=== PATIENT | female | born 1995 | race Caucasian/White ===

== ENCOUNTER 2025-04-03 13:12 | Outpatient (AMB) | payer OTHER, SELFPAY ==
--- OUTSIDE RECORDS SUMMARY | 2025-01-29 09:00 | XMS_ITS | Encounter Summary ---
Author Organization [facility] Address [address] [place] [phone] Phone Care Team Providers [employer] Pilot Name Role Phone Pcp, Unknown Primary Care Provider Unavailabl e Encounter Details Date Type Department Care Team (Late st Contact Info) Description 01/29/2025 10:00 AM EDT Telemedicine [facility] [place]ol[place] General LW [address] [place] [address] Darnell Luna MD, MPH [address] [place] [address] [email or web address]. [facility] Chronic rhinitis (Primary Dx); Laryngopharyngeal reflux; Post-nasal drip; Recurrent tonsillitis Social History Tobacco Use Types Packs/Day Years Used Date Smoking Tobacco: Never Smokeless Tobacco: Never Alcohol Use Standard Drinks/Week Comments Never 0 (1 standard drink = 0.6 oz pur e alcohol) Education Answer Date Recorded Are you interested in more education? Not on ji e 10/07/2024 Are you concerned about learning? Not on file 10/07/2024 No 10/07/2024 No 10/07/2024 Digital Access Answer Date Recorded No 10/07/2024 No 10/07/2024 Reliable internet access at home? Not on file 10/07/2024 Device with a working camera? Not on file Comments Unknown Sex and Gender Information Value Date Recorded Sex Assigned at Not on file Legal Sex Female 10:07 AM EDT Gender Identity Not on file Sexual Orientation Not on file documented as of this encounter Progress Notes * Darnell Luna MD, MPH - 01/29/2025 10:00 AM EDT Images from the original note were not included. [facility] OT[facility] PATIENT INFORMATION Name: Jazmine Vaz [id number] ([facility]) Date of : 1995 Date of service: 01/29/2025 REFERRING PROVIDER Darnell Luna MD, MPH CHIEF COMPLAINT Recurrent tonsillitis, tonsil stones, globus/throat clearing HISTORY OF PRESENT ILLNESS I had the pleasure of seeing Jazmine Vaz, who as you know is a 29 y.o. female who presents forevaluation of her nose, tonsils, and throat. Her full history as below, that she has had on average2-3 episodes of bacterial tonsillitis typified by tonsillar hypertrophy/erythema/exudate over the past 3 years, but has had a lifetime of recurrent tonsillitis. She also has a significant tonsil stone burden. In this context, she also notes sense of postnasal drainage, globus, and throat clearing. --- History of Present Illness Jazmine aVz is a 28 year old female who presents with chronic throat issues. She has a long-standing history of recurrent throat infections, particularly strep throat, occurring once or twice annually since childhood. This year, she experienced two episodes, one in August and another in September. She describes a sensation of something stuck in her throat and frequent tonsil stones. Previous medical advice attributed her symptoms to allergies. She experiences persistent throat clearing and a sensation of a lump in her throat, which worsens after eating. She denies regular heartburn but has had occasional episodes. Her tonsils often become inflamed with white spots and are painful, occurring at least two to three times per year. She sometimes experiences difficulty swallowing and suspects she may snore. No history of easy bleeding or bruising. She notes a postnasal drip that worsens in the spring but persists year-round. Throat clearing is particularly bothersome, as it feels like she cannot dislodge the sensation of mucus. She has a history of sinus infections, primarily during childhood, and was recently advised to use Zyrtec and Flonase. Socially, she has a gxt-smqm-xco son who attends daycare. Interval History (01/29/2025): She presents today in follow-up. Unfortunately, while the first month of dietary changes and reflux Gourmet, along with saline spray and azelastine were mildly effective in improving her baseline nasal obstruction, postnasal drip, unfortunately she likely contracted Palma and has been persistently obstructed nasally with more severe postnasal drip and throat clearing. PAST MEDICAL HISTORY There is no problem list on file for this patient. MEDICATIONS Current Outpatient Medications Ordered in [facility] Medication Sig azelastine (ASTELIN) 137 mcg (0.1 %) nasal spray 2 sprays by Nasal route 2 (two) times a day. Use in each nostril as directed; may cause drowsiness, if so just use at night azelastine HCl (AZELASTINE, BULK,) 100 % Powd 1 mg by sinus irrigation route 2 (two) times a day. Compound azelastine 1mg capsule in sinus rinse twice daily mometasone furoate, bulk, 100 % Powd Compound mometasone 1mg capsule in sinus rinse twice daily ALLERGIES No Known Allergies SOCIAL HISTORY Social History Tobacco Use Smoking status: Never Smokeless tobacco: Never Substance Use Topics Alcohol use: Never PRIOR PROCEDURE DIAGNOSTIC FLEXIBLE FIBEROPTIC LARYNGOSCOPY Indication: Globus / Odynophagia / Dysphonia / Persistent Throat clearing in an adult, r/o malignancy In the context of the patient's clinical presentation and the need to visualize the regions in close proximity, the decision was made to proceed with an endoscopic exam. A timeout was performed. Accordingly, after adequate topicalization with lidocaine 2% / oxymetazoline 0.025%, the fiberoptic scope was passed to visualize the regions of concern. The patient tolerated the procedure well. Findingsare as follows: Right nasal cavity: Turbinate mucosa pink, moist ; No purulence or polyps Left nasal cavity: Turbinate mucosa pink, moist ; No purulence or polyps Nasopharynx: Eustachian tube orifices patent bilaterally ; Minimal residual adenoid tissue ; No lesions or masses, Fossa of Rossenmueller clear bilaterally, moderate thin post- nasal drip with associated cobblestoning along the oropharyngeal wall Oropharynx: Symmetric and normal soft palatal elevation ; No masses or fullness in base of tongue or vallecula Hypopharynx: No masses or lesions in piriform sinuses or post-cricoid area; mild erythema and moderate edema of the post-cricoid region; No pooling of secretions Larynx: Epiglottis crisp ; Arytenoid complex with mild edema and mild erythema ; False vocal cords without obvious lesion ; True vocal folds mobile with full adduction / abduction and without obviouslesion: no cysts, polyps, nodules, or leukoplakia identified No exophytic or ulcerative lesions throughout the upper aerodigestive tract RESULTS No results found. ASSESSMENT AND PLAN Chronic rhinitis with postnasal drip, laryngopharyngeal reflux, tonsil stones Unfortunately, she is contracted a URI that has now lasted for more than a month. She notes that this is typical. At this time, we discussed a more aggressive nasal hygiene plan. Specifically, we discussed the rationale, physiology, and pathophysiology with regard to chronic rhinitis and chronic rhi nosinusitis. We discussed the rationale between combining mometasone and azelastine compounded in irrigations, which I recommend she use once daily, along with the use of saline spray and azelastine during the other time of day when she is not doing an irrigation. We discussed that consistent use can be helpful over time for resolving these persistent URI symptoms or preventing progression of a URI to bacterial infection. She will follow-up in 8 weeks once again. If there is no improvement whatsoever, we will need to discuss a CT scan at that time. Initial Plan: Recurrent bacterial tonsillitis, tonsil stones Laryngopharyngeal reflux, chronic rhinitis with postnasal drip We had an excellent conversation. We began by discussing that I think postnasal drainage and refluxare playing a role in her globus and throat clearing. For her rhinitis and postnasal drip, I have recommended saline spray with xylitol twice daily, followed by azelastine nasal spray. The risk of drowsiness with azelastine was discussed. She also has evidence of mild laryngopharyngeal reflux. In addition to significant dietary changes which we discussed in detail and for which a list was provided, I have recommended alginate therapy after every dinner. We did discuss he can take time for one notices improvement especially globus and throat clearing. With regard to her tonsils, we discussed we could consider tonsillectomy based on the number of infections and especially the considerable tonsil stone production which hinders her quality of life. That said, we did have a complete discussionwith regard to the risk of tonsillectomy and the recovery, including severe pain, along with the risk of postoperative hemorrhage. I am hopeful that with the plan above, we may be able to reduce her frequent tonsillitis given that in some patients, postnasal drainage and occasionally reflux can contribute. If she develops another significant case of tonsillitis in the next few months however, we may need to reconsider this. I will follow-up with her in 8 weeks virtually to assess for improvement. Darnell Luna MD, MPH Otolaryngology, Head & Neck Surgery [address] [address] (p) [phone], (f) [phone] Virtual Visit Attestation Modality: video Provider Location, state disclosed to patient: home / other Patient Location: home Patient State or Country: [place] documented in this encounter Plan of Treatment Upcoming Encounters Date Type Department Care Team (Late st Contact Info) Description 04/02/2025 Procedure Pass [facility] [place] Imaging [place] CT [address] [address] 05/07/2025 10:45 AM EST Appointment [facility] - [place] [address] [address] Darnell Luna MD, MPH [address] [place] [phone] [email or web address] 05/25/2025 12:00 PM EST Office Visit [facility] [place] Otolaryngology General [address] [address] Darnell Luna MD, MPH [address] [place] [phone] [email or web address] 06/11/2025 10:30 AM EST Office Visit [facility] Allergy [address], [address], [address] [place] [address] Ashley Ocasio MD [address] [facility] [address] [place] [address] [email or web address] documented as of this encounter Visit Diagnoses Diagnosis Chronic rhinitis- Primary Laryngopharyngeal reflux Acute laryngitis, without mention of obstruction Post-nasal drip Postnasal drip Recurrent tonsillitis documented in this encounter Care Teams Corporation Pilot Relationship Specialty Start Date End Date Pcp, Unknown PCP - General 10/07/24 documented as of this encounter Additional Source Comments The information contained in this document represents components of the legal health record. It is not the complete legal health record.[facility]
--- OUTSIDE RECORDS SUMMARY | 2025-04-02 10:00 | XMS_ITS | Encounter Summary ---
Author Organization [facility] Address [address] [place] [address] Phone Care Team Providers Care [employer] Name Role Phone Pcp, Unknown Primary Care Provider Unavailabl e Reason for Referral * Consultation (Within 2 weeks) - New Request Specialty Diagnoses / Procedures Referred By Florina torrez Referred To Contact Allergy and Immunology Diagnoses Chronic pansinusitis Darnell Luna MD, MPH [address] [place] [address] Phone: tel: fax: mailto:[email or web address] [phone] Phone: tel: Referral ID Status Reason Start Date Expiration Date V isits Requested Visits Authorized [id number] New Request 04/02/2025 04/02/2026 1 1 * MRI/CAT Scan - Authorized Specialty Diagnoses / Procedures Referred By Florina t Referred To Contact Radiology Diagnoses Chronic pansinusitis Procedures CT Face Darnell Luna MD, MPH [address] [place] [address] Phone: tel: fax: mailto:[email or web address] Referral ID Status Reason Start Date Expiration Date V isits Requested Visits Authorized [id number] Authorized 05/07/2025 06/06/2025 1 1 Encounter Details Date Type Department Care Team (Late st Contact Info) Description 04/02/2025 10:00 AM EST [place]medicine [facility] [place] LW [address] [place] [address] Darnell Luna MD, MPH [address] [place] [address] [email or web address] [facility] Chronic pansinusitis (Primary Dx); Post-nasal drip; Tonsillith Social History Tobacco Use Types Packs/Day Years [...] Notes * Darnell Luna MD, MPH - 04/02/2025 10:00 AM EST Images from the original note were not included. [facility] OT[facility]Y NOTE PATIENT INFORMATION Name: Jazmine Vaz [id number] ([facility]) Date of : 1995 Date of service: 04/02/2025 REFERRING PROVIDER Unknown, Unknown, MD CHIEF COMPLAINT Recurrent tonsillitis, tonsil stones, globus/throat clearing HISTORY OF PRESENT ILLNESS I had the pleasure of seeing Jazmine Milind, who as you know is a 29 [...] clearing. --- History of Present Illness Jazmine Vaz is a 28 year old female who [...] Zyrtec and Flonase. Socially, she has a ash-tdsz-wwd son who attends daycare. Interval History (01/29/2025): She presents today in follow-up. Unfortunately, while the first month of dietary changes and reflux Gourmet, along with saline spray and azelastine were mildly effective in improving her baseline nasal obstruction, postnasal drip, unfortunately she likely contracted Palma and has been persistently obstructed nasally with more severe postnasal drip and throat clearing. Interval History (04/02/2025): She presents today in follow-up. After starting mometasone and azelastine irrigations, continuing with saline spray and azelastine at nighttime, she notes moderate improvement in her presenting symptomotology. She still has tonsil stones, but no recent tonsillitis. She notes that the postnasal drainage, which she feels accumulating in the posterior nasal cavity primarily, still will occur throughout the day and worsen throughout the day, but she notes marked improvement in throat clearing and globus. PAST MEDICAL HISTORY There is no problem list on file for this patient. MEDICATIONS Current Outpatient Medications Or[facility] in [facility] Medication Sig azelastine (ASTELIN) 137 mcg (0.1 [...] with postnasal drip, laryngopharyngeal reflux, tonsil stones We had an excellent conversation. Although I am pleased that she has noted some meaningful improvement especially in postnasal drip and throat clearing and globus, she continues to have persistent symptomotology that progresses throughout the day. This is less of a globus currently and more of a sense of mucous in the posterior nasal cavity. There is no estrellita reflux. Therefore, in the short-term I recommend she add back and Zyrtec. I do think allergy testing at this point would be warranted to assess for perennial allergies. We also discussed obtaining a CT scan to rule out occult chronic rhinosinusitis contributing to her significant postnasal drainage. She will follow-up with me in personafter the CT scan is complete, and then next best steps will depend upon the CT, her ongoing response to the above management for which she will continue mometasone azelastine irrigations once daily and saline spray and azelastine once daily, and then we will take it from there. We did briefly discu ss tonsillectomy again but both agreed to defer this. Initial Plan: Recurrent bacterial tonsillitis, tonsil stones [...] That said, we did have a complete discussion with regard to the risk of tonsillectomy and the recovery, including severe pain, along with the risk of postoperative hemorrhage. I am hopeful that with the plan above, we may be able to reduce her frequent tonsillitis given that in some patients, postnasal drainage and occasionally reflux can contribute. If she develops another significant case of tonsillitis in the next few months however, wemay need to reconsider this. I will follow-up with her in 8 weeks virtually to assess for improvement. Darnell Luna MD, MPH Otolaryngology, Head & Neck Surgery [address] [address] (p) [phone], (f) [phone] Virtual Visit Attestation Modality: video Provider Location, state disclosed to patient: home / other Patient Location: home Patient State or Country: [place] documented in this encounter Plan of Treatment Upcoming Encounters Date Type Department Care Team (Late st Contact Info) Description 04/02/2025 Procedure Pass [facility] [address] [address] 05/07/2025 10:45 AM EST Appointment [facility] CT [address] [address] Darnell Luna MD, MPH [address] [place] [phone] [email or web address] 05/25/2025 12:00 PM EST Office Visit [facility]ol[place] General [address] [address] Darnell Luna MD, MPH [address] [place] [phone] [email or web address] 06/11/2025 10:30 AM EST Office Visit [facility] Allergy [address], [address] [place] [address] Ashley Ocasio MD [address] [facility] [address] [place] [address] [email or web address] Scheduled Orders Name Type Priority Associated Diagnoses Orde r Schedule CT Face Imaging Routine Chronic pansinusitis Expected: 04/16/2025, Expires: 09/30/2025 Scheduled Referrals Name Type Priority Associated Diagnoses Orde r Schedule Ambulatory referral to [facility] Allergy Outpatient Referral Routine Chronic pansinusitis Ordered: 04/02/2025 documented as of this encounter Visit Diagnoses Diagnosis Chronic pansinusitis- Primary Other chronic sinusitis Post-nasal drip Postnasal drip Tonsillith documented in this encounter Care Teams Br[employer] Plater Relationship Specialty Start Date End Date Pcp, Unknown PCP - General 10/07/24 documented as of this encounter Additional Source Comments The information contained in this document represents components of the legal health record. It is not the complete legal health record.[facility]
--- NOTE | 2025-04-03 13:19 | A.OFFPC_ITS ---
Vital Signs 04/03/25 13:23 Height 5 ft 5.75 in Weight 143 lb 8 oz BMI 23.3 BP 108/60 Blood Pressure Location Rt brachial Position Sitting Respiration 14 Pulse 83 Pulse Source Pulse Oximeter Temp 98.2 F Temp Source Oral Pulse Oximetry (%) 99 Oxygen Delivery Method Room Air Intake Visit Reasons: CPE Intake Note: New patient visit Registered Midwife Required: No Allergies No Known Allergies Allergy (Verified 04/03/25 13:21) Tobacco use date assessed: 04/03/25 Dental Screening Dental Screen Date: 04/03/25 Did you have a dental visit in the last 12 months?: Yes Did you have a dental problem in the last 6 months where you did not have access to dental care?: No Was dental information given to patient?: Patient has dentist HPI HPI Comments History of Present Illness Details 29 year old female with a past medical h istory of anxiety, allergies presenting to establish care/CPE BH: Says chronic anxiety. Does not function well on too little sleep. Has issues with attention/getting through the day. In the process of changing diet, trying to cut out sugar. She has periods of doing well functioning well and then kind of falling off the wagon. Seeing ENT for chronic congestion. In [place]. Upcoming allergy testing at [facility] Saw dermatology for FBSE last year Td: Dental: UTD Registered Occupational Therapist: Follows with employment recruiter in [facility] CONSTITUTIONAL: Denies weight loss, fever and chills. HEENT: Denies changes in vision and hearing. RESPIRATORY: Denies SOB and cough. CV: Denies palpitations and CP GI: Denies abdominal pain, nausea, vomiting and diarrhea. : Denies dysuria and urinary frequency. MSK: Denies new myalgia and joint pain. SKIN: Denies rash and pruritus. NEUROLOGICAL: Denies headache PSYCHIATRIC: Denies recent changes in mood. PHYSICAL EXAM: GENERAL: Alert and oriented x 3. NAD EYES: EOMI. Anicteric. HENT: Moist mucous membranes. No scleral icterus. No cervical lymphadenopathy. LUNGS: Clear to auscultation bilaterally. CARDIOVASCULAR: Regular rate and rhythm. No murmur. No JVD. ABDOMEN: Soft, non-tender +bs EXTREMITIES: No edema. Non-tender. SKIN: No rashes or lesions. Warm. NEUROLOGIC: No focal neurological deficits. CN II-XII grossly intact PSYCHIATRIC: Cooperative. Appropriate mood and affect [facility] Surgical History H/O section Family History Maternal Grandmother Clotting disorder Other FH: mental illness Substance abuse Social History Housing: House Alcohol intake: current Patient Tobacco Use Status: Never used Tobacco e-Cigarette/Vaping Use: Never Used Second Hand Smoke Exposure: Yes Current occupational status: employed Current occupation: install manager money Current occupational exposures/hazards: No Cognitive needs: No Hearing needs: No Vision needs: No Questionnaire PHQ-9 Over the last 2 weeks, how often have you been bothered by any of the following problems? 1. Little interest or pleasure in doing things: not at all 2. Feeling down, depressed, or hopeless: several days 3. Trouble falling or staying asleep, or sleeping too much: not at all 4. Feeling tired or having little energy: more than half the days 5. Poor appetite or overeating: several days 6. Feeling bad about yourself - or that you are a failure or have let yourself or your family down: not at all 7. Trouble concentrating on things, such as reading the newspaper or watching television: nearly every day 8. Moving or speaking so slowly that other people could have noticed. Or the opposite - being so fidgety or restless that you have been moving around a lot more than usual: not at all 9. Thoughts that you would be better off or of hurting yourself in some way: not at all Total score: 7 Depression Screening Interpretation: Positive (referred psychiatry) Depression Screening Follow-up: Existing condition Depression Screening Done: Yes 16378 - PHQ-9 Billing: Yes Source: Developed by Drs. Flavio Wellington, Debo Hyde, Tobi Kinney and colleagues, with an educational franko from [employer]. Thrive Questionnaire Date Thrive assessed: 04/03/25 I am a: Patient What is your living situation today?: I have a steady place to live Within the past 12 months, did the food you bought not last and you didn't have the money to get more?: Never true Within the past 12 months, did you worry whether your food would run out before you got money to buy more?: Never true Do you have trouble paying for medicines?: No Do you have trouble getting transportation to medical appointments?: No Do you have trouble paying your heating and electricity bill?: No Do you have trouble taking care of your child, family member or friend?: No Do you have trouble with day-to-day activities such as bathing, preparing meals, shopping, managing finances, etc.?: No Are you currently unemployed and looking for a job?: No Are you interested in more education?: Yes Please select the resources that you would like help with: None Currently or been in a relationship where the following occur: No concerns reported THRIVE Score: 0 AUDIT C Alcohol Use Questionnaire (AUDIT-C) 1. How often do you have a drink containing alcohol?: Monthly or less 2. How many drinks containing alcohol do you have on a typical day when you are drinking?: 1 or 2 3. How often do you have six or more drinks on one occasion?: Never Total Score: 1 IVAN-7 AMB Questionnaire IVAN-7 Date IVAN - 7 assessed: 04/03/25 Feeling nervous, anxious, or on edge: 1 = Several days Not being able to stop or control worryin = Several days Worrying too much about different things: 1 = Several days Trouble relaxin = Several days Being so restless that it is hard to sit still: 1 = Several days Becoming easily annoyed or irritable: 1 = Several days Feeling afraid as if something awful might happen: 1 = Several days Total IVAN-7 score (0-4 normal; 5-9 mild; 10-14 moderate; 15-21 severe): 7 Source: Developed by Drs. Flavio Wellington, Debo Hyde, Tobi Kinney and colleagues, with an educational franko from [employer]. IVAN-7 Assessment Billing IVAN-7 Assessment Tool: IVAN-7 Assessment 29982 Physical exam (Primary Care) PHQ-9: PHQ-9 Score PHQ-9: Total score 7 04/03/25 13:19 Depression Screening Interpretation: Positive (referred psychiatry) Depression Screening Follow-up: Existing condition Currently or been in a relationship where the following occur: No concerns reported Coding Level of Care Code Est Pt Prev Care 18-39y(31840) Diagnoses Physical exam Z00.00 Anxiety F41.9 Attention deficit R41.840 Additional Codes IVAN-7 Assessment Billing - IVAN-7 Assessment Tool: IVAN-7 Assessment 74548 ([id number]) PHQ-9 - 35740 - PHQ-9 Billing: Yes ([id number]) Assessment & Plan Assessment & Plan (1) Physical exam: Code(s): Z00.00 - Encounter for general adult medical examination without abnormal findings (2) Anxiety: Code(s): F41.9 - Anxiety disorder, unspecified Category: Medical (3) Attention deficit: Code(s): R41.840 - Attention and concentration deficit Category: Medical Plan 29 year old female presenting to [facility]cpe past medical, surgical, social reviewed preventive measures for age discussed Anxiety, attention deficit-referral psychiatry for assessment Registered Occupational Therapist, dental UTD labs ordered. Orders: Orders Lipid Panel Today F41.9 - Anxiety disorder, unspecified, R35.89 - Other polyuria, R41.840 - Attention and concentration deficit, T78.40XA - Allergy, unspecified, initial encounter, Z13.0 - Encounter for screening for diseases of the blood and blood-forming organs and certain disorders involving the immune mechanism, Z13.220 - Encounter for screening for lipoid disorders, Z13.228 - Encounter for screening for other metabolic disorders Hemoglobin A1c Today F41.9 - Anxiety disorder, unspecified, R35.89 - Other polyuria, R41.840 - Attention and concentration deficit, T78.40XA - Allergy, unspecified, initial encounter, Z13.0 - Encounter for screening for diseases of the blood and blood-forming organs and certain disorders involving the immune mechanism, Z13.220 - Encounter for screening for lipoid disorders, Z13.228 - Encounter for screening for other metabolic disorders Complete Blood Count Auto Diff Today F41.9 - Anxiety disorder, unspecified, R35.89 - Other polyuria, R41.840 - Attention and concentration deficit, T78.40XA - Allergy, unspecified, initial encounter, Z13.0 - Encounter for screening for diseases of the blood and blood-forming organs and certain disorders involving the immune mechanism, Z13.220 - Encounter for screening for lipoid disorders, Z13.228 - Encounter for screening for other metabolic disorders Comprehensive Met. Panel Today F41.9 - Anxiety disorder, unspecified, R35.89 - Other polyuria, R41.840 - Attention and concentration deficit, T78.40XA - Allergy, unspecified, initial encounter, Z13.0 - Encounter for screening for diseases of the blood and blood-forming organs and certain disorders involving the immune mechanism, Z13.220 - Encounter for screening for lipoid disorders, Z13.228 - Encounter for screening for other metabolic disorders TSH reflex Free T4 Today F41.9 - Anxiety disorder, unspecified, R35.89 - Other polyuria, R41.840 - Attention and concentration deficit, T78.40XA - Allergy, unspecified, initial encounter, Z13.0 - Encounter for screening for diseases of the blood and blood-forming organs and certain disorders involving the immune mechanism, Z13.220 - Encounter for screening for lipoid disorders, Z13.228 - Encounter for screening for other metabolic disorders Vitamin B12 and Folate Today F41.9 - Anxiety disorder, unspecified, R35.89 - Other polyuria, R41.840 - Attention and concentration deficit, T78.40XA - Allergy, unspecified, initial encounter, Z13.0 - Encounter for screening for diseases of the blood and blood-forming organs and certain disorders involving the immune mechanism, Z13.220 - Encounter for screening for lipoid disorders, Z13.228 - Encounter for screening for other metabolic disorders Referrals Psychiatry Referral F41.9 - Anxiety disorder, unspecified, R41.840 - Attention and concentration deficit
[2025-04-03 13:23] VITALS: BP 108/60; PULSE 83; RESP 14; TEMP 36.8; O2SAT 99; BMI 23.3
--- OUTSIDE RECORDS SUMMARY | 2025-04-03 19:24 | XMS_ITS | Clinical Summary ---
Author Organization [address] [place] [address] [place] [phone] Phone Care Team Providers Care Pediatric Cardiologist Name Role Phone Physician, No Pcp Primary Care Provider Unavaila ble Allergies No known active allergies Medications azelastine (ASTELIN) 137 mcg (0.1 %) nasal spray Administer 2 sprays into affected nostril(s) 2 times daily. Active Encounters Date Type Department Care Team Description 03/04/2025 Results Follow-Up Obstetrics and Gynecology - [address] [phone] Joan Latham MD 02/26/2025 7:30 AM EDT Office Visit Obstetrics and Gynecology - [address] [phone] Joan Latham MD Encounter for gynecological examination without abnormal finding (Primary Dx); Pap smear for cervical cancer screening from Last 3 Months Immunizations Immunization Administration Dates Next Due Hepatitis B (Jnhqkvo-B-Oixcm , Recombivax HB-Adult) 19yo and older 08/24/2022,07/24/2022 Influenza Quadravalent, MDCK , 0.5ml, preservative free (Flucelvax) 6mo and older 05/08/2022 Influenza Quadrivalent, 0.5m l, preservative free (Fluarix; FluLaval; Fluzone) ages 6mo and older (Afluria) 3yo and older 02/28/2023 MMR, measles mumps and rubel la Live (Priorix; M-M-R II) 12mo and older 01/13/2023 Tdap Tetanus diptheria acell ular pertussis (Boostrix; Adacel) 7yo and older 10/23/2022,05/21/2022 Varicella live (Varivax) 12mo and older 06/05/19 18 Surgical History Surgery Date Site/Laterality Comments WISDOM TOOTH EXTRACTION PROCEDURE:WISDOM TOOTH EXTRACTION SECTION 01/09/2023 N/A PROCEDURE: SECTION;COMMENT:Procedure: OB SECTION; Surgeon: Verito Rey MD; Location: [facility] DEL[facility]; Service: Obstetrics; Laterality: N/A; SECTION, LOW TRANSVERSE 01/09/23 Medical History Medical History Date Comments Abnormal Pap smear of cervix DX: Abnormal Pap smear of cervix Family History Medical History Relation Name Comments No Known Problems Brother No Known Problems Father Bone cancer Great Aunt Lung cancer Great Aunt Prostate cancer Great Uncle No Known Problems Mother Thyroid cancer Mother's Brother No Known Problems Sister Breast cancer Neg Hx Colon cancer Neg Hx Ovarian cancer Neg Hx Uterine cancer Neg Hx Relation Name Status Comments Brother Alive Father Alive Great Aunt Great Uncle Mother Alive Mother's Brother Sister Alive Social History Tobacco Use Types Packs/Day Years Used Date Smoking Tobacco: Never Smokeless Tobacco: Never Tobacco Cessation:Counseling Given: Not Answered Alcohol Use Standard Drinks/Week Comments Not Currently 0 (1 standard drink = 0.6 oz pur e alcohol) Housing Instability Answer Date Recorde d Are you worried that in the next 2 months you may not have stable housing? No 02/19/2025 Food Access & Nutrition Answer Date Rec orded Do you have access to a vari ety of food including fruits and vegetables? Yes 02/19/2025 Access to Healthcare Answer Date Record ed Within the last 3 months, oz w many times did you visit the emergency department for your medical care? 0 02/19/2025 Health Literacy Answer Date Recorded How often do you need to hav e someone help you when you read instructions, pamphlets, or other written material from your doctor or pharmacy? Never 02/19/2025 Caregiver: How often do you need to have someone help you when you read instructions, pamphlets, or other written material from your doctor or pharmacy? Not on file 02/19/2025 Financial Risk Answer Date Recorded How hard is it for you to pa y for the very basics like food, housing, medical care, and air conditioning / heating? Not very hard 02/19/2025 Transportation Answer Date Recorded Has the lack of transportati on kept you from meetings, work, or from getting things needed for daily living? No Has the lack of transportati on kept you from medical appointments or from getting medications? No 02/19/2025 Social Isolation Answer Date Recorded How often do you feel lonely or isolated from th ose around you? Never 02/19/2025 Food Risk Answer Date Recorded Within the past 12 months we worried whether our food would run out before we got money to buy more. Never true 02/19/2025 Within the past 12 months th e food we bought just didn't last and we didn't have money to get more. Never true 02/19/2025 Dependent Care Answer Date Recorded Do you need help finding or paying for care for your loved ones. For example, child care team lead or elderly care for an older adult? No 02/19/2025 Education Answer Date Recorded Do you think completing more education or training, like finishing a GED, going to college, or learning a trade, would be helpful for you? Yes 02/19/2025 Employment and Income Answer Date Recor ded During the last four weeks, have you been actively looking for work? No 02/19/2025 Living Situation Answer Date Recorded What is your living situation? Unrecognized valu e 02/19/2025 Comments No Sex and Gender Information Value Date Recorded Sex Assigned at Female 05/23/2024 8:51 AM EST Legal Sex Female 4:58 AM EST Gender Identity Female 05/23/2024 8:51 AM EST Sexual Orientation Not on file Obstetrics History Para Term AB IAB SAB Ectopic Multiple Livin g Live Births 1 1 1 1 1 Date Outcome GA Total Labor Labor/2nd/3rd Weight Sex Type Anes PTL Terri A1 A5 Name Clin 023 Term 41w 0d 7h 17m 7h 16m/0h 01m 3860 g (136.2 oz) M CS-LT ranv Spina l,Epi dural N Livin g 8 9 RIO BOND MD [place] [place] 4-9) Last Filed Vital Signs Vital Sign Reading Time Taken Comments Blood Pressure 100/67 02/26/2025 7:35 AM EDT Pulse 78 05/05/2024 3:24 PM EST Temperature - - Respiratory Rate - - Oxygen Saturation - - Inhaled Oxygen Concentration - - Weight 64 kg (141 lb) 02/26/2025 7:35 AM EDT Height 170.2 cm (5' 7 ) 02/26/2025 7:35 AM EDT Body Mass Index 22.08 02/26/2025 7:35 AM EDT Plan of Treatment Health Maintenance Due Date Last Done Comments HPV Vaccines (1 - 3-dose SCD M series) 2021 Hepatitis B Vaccines (3 of 3 - 19+ 3-dose series) 01/24/2023 08/24/2022, 07/24/2022 COVID-19 Vaccine (4 - 2024-2 6 season) 2025 06/07/2021, 09/27/2020, 09/06/2020 Influenza Vaccine (#1) 2025 , 05/08/2022 Social Influencers of Health Screening 02/19/2026 02/19/2025 Cervical Cancer Screening: HPV 02/26/2030 02/26/2025 DTaP,Tdap,and Td Vaccines (3 - Td or Tdap) 10/23/2032 10/23/2022, 05/21/2022 RSV Immunization Adult Patients (1 - 1-dose 75+ series) 2069 Varicella Vaccines Aged Out 06/05/2017 No longer eligible based on patient's age to complete this topic Hepatitis C Screening Completed 06/29/2022 HIV Screening Completed 10/23/2022 MMR Vaccines Aged Out 01/13/2023 No longer eligi ble based on patient's age to complete this topic Depression Screening Completed 02/19/2025 HIB Vaccines Aged Out No longer eligi ble based on patient's age to complete this topic Hepatitis A Vaccines Aged Out No long er eligible based on patient's age to complete this topic IPV Vaccines Aged Out No longer eligi ble based on patient's age to complete this topic Meningococcal ACWY Vaccine Aged Out N o longer eligible based on patient's age to complete this topic Meningococcal B Vaccine Aged Out No l onger eligible based on patient's age to complete this topic Pneumococcal Vaccine: Pediatrics (0 to 5 Years) and At-Risk Patients (6 to 49 Years) Aged Out No longer eligible b ased on patient's age to complete this topic RSV Immunization Patients Under 20 months Aged Out No longer eligible b ased on patient's age to complete this topic Medical Devices Implanted Type Area Community Representative Device Identifier Shelf Expiration Date Model / Serial / Lot Hemostat Surgicel 3x4in When Stk Depl Use [id number] [facility] [id number] Implanted:Qty : 1 on 01/09/2023 by Verito Rey MD Implants N/A: Uterus [employer] 12/[id number] / / [id number] Procedures Procedure Name Priority Date/Time Associated Diagnosis Comments PAP SMEAR Routine 02/26/2025 2:14 PM EDT Pap smear for cervical cancer screening HPV HIGH RISK PCR Routine 02/26/2025 2:1 4 PM EDT Pap smear for cervical cancer screening HIV SCREENING Routine 10/23/2022 HEPATITIS C SCREENING Routine 06/29/2022 from Last 3 Months or Most Recently Relevant to Health Maintenance Results * HPV high risk molecular study (02/26/2025 2:14 PM EDT) HPV Negative Negative LAB MOLECULAR DIAGNOSTICS METHOD 02/27/2025 3:06 PM EDT [facility] Brushing/Spatula Cervix uteri structure / Unknown 02/26/2025 2:14 PM EDT 02/27/2025 7:45 AM EDT us Joan Latham MD LAB MOLECULAR DIAGNOSTICS EUSEBIA NICOLE Final Result [facility] [address] [place] [address], [place] [phone] * Pap smear (02/26/2025 2:14 PM EDT) Interpretation Negative for intraepithelial lesion or malignancy 03/04/2025 9:45 AM EDT [facility] at 0945 EDT General Categorization Negative 03/04/2025 9:45 AM EDT [facility] LMP 02/18/2025 03/04/2025 9:45 AM EDT [facility] Specimen Adequacy Satisfactory for evaluation, endocervical/rankin sformation zone component present 03/04/2025 9:45 AM EDT [facility] Pap Methodology Liquid Based Pap Test 03/04/2025 9:45 AM EDT [facility] Disclaimer Note: The Pap test is a screening test with an inherent false negative rate. Automated prescreening of all liquid based specimens is performed by the [employer] System unless otherwise stated. The technical components of this case were performed at [address] [address] CLIA # [id number] 03/04/2025 9:45 AM EDT [facility] Console Pap Interpretation Reported 03/04/2025 9:45 AM EDT [facility] Brushing/Spatula Cervix uteri structure / Unknown 02/26/2025 2:14 PM EDT 02/26/2025 2:14 PM EDT us Joan Latham MD LAB CYTOLOGY ORDERABLES Final Result [facility] [address] [place] [address], [place] [phone] * HIV Screening (10/23/2022) HIV Screening ABSTRACTED Esli Provider HEALTH MAINTENANCE Final Result * Hepatitis C Screening (06/29/2022) Hepatitis C Screening ABSTRACTED Historical Provider HEALTH MAINTENANCE Final Result from Last 3 Months or Most Recently Relevant to Health Maintenance Insurance [facility] Care Teams Pediatric Cardiologist Relationship Specialty Start Date End Date Physician, No Pcp PCP - General 05/09/24
--- OUTSIDE RECORDS SUMMARY | 2025-04-03 19:24 | XMS_ITS | Encounter Summary ---
Author Organization [facility] [place] [address] Care Team Providers Care Information Technology Specialist Name Role Phone Physician, No Pcp Primary Care Provider Unavaila ble Encounter Details Date Type Department Care Team (Late st Contact Info) Description 03/04/2025 Results Follow-Up Obstetrics and Gynecology - [place] [address] [place] [id number] Joan Latham MD [address] [place] [address] Social History Tobacco Use Types Packs/Day Years Used Date Smoking Tobacco: Never Smokeless Tobacco: Never Alcohol Use Standard Drinks/Week Comments Not Currently [...] Record ed Within the last 3 months, ho w many times did you visit the [...] care for your loved ones. For example, children's service worker or elderly care for an older adult? [...] AM EST Sexual Orientation Not on file documented as of this encounter Plan of Treatment Not on file documented as of this encounter Visit Diagnoses Not on filedocumented in this encounter Additional Health Concerns Assessment Noted Time PHQ-9 Depression Total Score: 5 02/20/20 25 10:25 AM EDT documented as of this encounter Care Teams Information Technology Specialist Relationship Specialty Start Date End Date Physician, No Pcp PCP - General 05/09/24 documented as of this encounter
--- OUTSIDE RECORDS SUMMARY | 2025-04-03 19:24 | XMS_ITS | Clinical Summary ---
Author Organization [facility] Address [address] [place] [address] Care Team Providers Care Tumor Registrar Name Role Phone Unavailable Primary Care Provider Unavailabl e Allergies No known active allergies Medications Medication Sig Dispensed Refills Start Date End Date Status Vit-Fe Fumarate-FA ( VITAMINS PO) Take by mouth. 0 Active Active Problems Problem Noted Date Diagnosed Date H/O Low Transverse w/ J-extension 12/20 Overview: Right sided J-extension performed due to vertex deep in pelvis Admitted to labor and delivery 01/09/2023 09/21/2022 Resolved Problems Problem Noted Date Diagnosed Date Resolved Date Pelvic pain in female 03/31/20202022 Immunizations Name Administration Dates Next Due Hepatitis B (Adult 3 dose)/(Adolescent 2 dose) E ngerix 08/24/2022,07/24/2022 Influenza Quad (Flucelvax) 0.5mL >6mon (ccIIV4) 05/08/2022 MMR 01/13/2023 Tdap 10/23/2022 Family History Medical History Relation Name Comments No Sig Med Hx Brother No Sig Med Hx Father Bone cancer Great Aunt Lung cancer Great Aunt Prostate cancer Great Uncle Thyroid cancer Maternal Uncle No Sig Med Hx Mother No Sig Med Hx Sister Breast cancer Neg Hx Colon cancer Neg Hx Ovarian cancer Neg Hx Uterine cancer Neg Hx Relation Name Status Comments Brother Alive Father Alive Great Aunt Great Uncle Maternal Uncle Mother Alive Sister Alive Social History Tobacco Use Types Packs/Day Years Used Date Smoking Tobacco: Never Smokeless Tobacco: Never Tobacco Cessation:Counseling Given: Not Answered Alcohol Use Standard Drinks/Week Comments Not Currently 0 (1 standard drink = 0.6 oz pur e alcohol) rare Sex and Gender Information Value Date Recorded Sex Assigned at Female 01/05/2023 3:49 PM EDT Gender Identity Female 01/05/2023 3:49 PM EDT Sexual Orientation Not on file Job Start Date Occupation Industry Not on file Not on file Not on file Last Filed Vital Signs Vital Sign Reading Time Taken Comments Blood Pressure 118/74 02/21/2024 8:10 AM EDT Pulse 94 01/13/2023 8:15 AM EDT Temperature 36.7 C (98.1 F) 01/13/2023 8:15 AM EDT Respiratory Rate 18 01/13/2023 8:15 AM EDT Oxygen Saturation 99% 01/13/2023 8:15 AM EDT Inhaled Oxygen Concentration - - Weight 63.5 kg (140 lb) 02/21/2024 8:10 AM EDT Height 172.7 cm (5' 8 ) 02/21/2024 8:10 AM EDT Body Mass Index 21.29 02/21/2024 8:10 AM EDT Plan of Treatment Health Maintenance Due Date Last Done Comments COVID-19 Vaccine (#1) 06/21/1995 Depression Screening 2006 Hepatitis B Vaccines (3 of 3 - 19+ 3-dose series) 01/24/2023 08/24/2022, 07/24/2022 BMI Counseling 12/10/2024 12/11/2023, 05/21, 03/10/2022, Additional history exists Influenza Vaccine (#1) 2025 05/08/2022 Preventative Health Evaluation 02/20/2025 02/21/2024, 03/10/2022 Cervical Cancer Screening (Pap Smear) 03/10/2025 03/10/2022 DTap / Tdap / Td (2 - Td or Tdap) 10/23/2032 10/23/2022 Hepatitis C Screening Completed 06/29/2022 Pneumococcal Vaccine Aged Out No long er eligible based on patient's age to complete this topic RSV Ped < 20 months Aged Out No longe r eligible based on patient's age to complete this topic Medical Devices Implanted Type Area Hollow Core Door Frame Assembler Device Identifier Shelf Expiration Date Model / Serial / Lot Hemostat Surgicel 3x4in When Stk Depl Use [id number] [facility] [id number] - [id number] Implanted:Qty : 1 on 01/09/[place] [facility] [place] Hemostatic Agent N/A: Uterus [employer] 12/18/2026 194 / / [id number] Advance Directives For more information, please contact: [phone] Latest Code Status on File Code Status Date Activated Date Inactivated Comments Full Code 01/09/2023 1:12 AM 01/13/2023 11:48 PM This code status was ascertained in the following way: discussion with patient .
--- OUTSIDE RECORDS SUMMARY | 2025-04-03 19:24 | XMS_ITS | Clinical Summary ---
Author Organization [facility] Address [address] [place] [phone] Phone Care Team Providers Care It Consultant Name Role Phone Pcp, Unknown Primary Care Provider Unavailabl e Allergies No known active allergies Medications azelastine (ASTELIN) 137 mcg (0.1 %) nasal spray 2 sprays by Nasal route 2 (two) times a day. Use in each nostril as directed; may cause drowsiness, if so just use at night 90 mL 4 5 Active mometasone furoate, bulk, 100 % Powd Compound mometasone 1mg capsule in sinus rinse twice daily 60 g 2 5 Active azelastine HCl (AZELASTINE, BULK,) 100 % Powd 1 mg by sinus irrigation route 2 (two) times a day. Compound azelastine 1mg capsule in sinus rinse twice daily 60 g 2 5 Active Encounters Date Type Department Care Team Description 04/02/2025 10:[address] [facility] [place] [address] [place] [address] Darnell Luna MD, MPH Chronic pansinusitis (Primary Dx); Post-nasal drip; Tonsillith 01/29/2025 10:[address] [facility] [place] [address] [place] [address] Darnell Luna MD, MPH Chronic rhinitis (Primary Dx); Laryngopharyngeal reflux; Post-nasal drip; Recurrent tonsillitis from Last 3 Months Social History Tobacco Use Types Packs/Day Years Used Date Smoking Tobacco: Never Smokeless Tobacco: Never Tobacco Cessation:Counseling Given: Not Answered Alcohol Use Standard Drinks/Week Comments Never 0 [...] on file Sexual Orientation Not on file Last Filed Vital Signs Vital Sign Reading Time Taken Comments Blood Pressure - - Pulse - - Temperature - - Respiratory Rate - - Oxygen Saturation - - Inhaled Oxygen Concentration - - Weight 63.5 kg (140 lb) 11/26/2024 10:57 AM EDT Height 170.2 cm (5' 7 ) 11/26/2024 10:57 AM EDT Body Mass Index 21.93 11/26/2024 10:57 AM EDT Plan of Treatment Upcoming Encounters Date Type Department Care Team (Late st Contact Info) Description 04/02/[address] [facility] [place] [address] [id number] 05/07/2025 10:[address] [facility] [place] [address] [address] Darnell Luna MD, MPH [address] [place] [address] [email or web address] [email or web address] 05/25/2025 12:00 PM EST Office Visit [facility] [place] General [address] [place] [address] Darnell Luna MD, MPH [address] [place] [address] [email or web address] [email or web address] 06/11/2025 10:30 AM EST Office Visit [facility] [place] Allergy [address], [address] [place] [address] Ashley Ocasio MD [address] [place] [phone] [email or web address] Health Maintenance Due Date Last Done Comments DEPRESSION SCREENING 2006 HIV ONE-TIME SCREENING (18-6 5 YEARS) 2012 SMOKING STATUS SCREENING (On ce After 26 Yrs) 2020 INFLUENZA VACCINE (#1) 2024 COVID-19 VACCINE ( - 2024-2 6 season) 2025 PAP SMEAR 03/10/2025 03/10/2022 Adult Td,Tdap Booster 10/23/2032 10/23/2022 HEPATITIS C SCREENING Completed 06/29/2022 HEPATITIS A VACCINES Aged Out No long er eligible based on patient's age to complete this topic HIB VACCINES Aged Out No longer eligi ble based on patient's age to complete this topic IPV VACCINES Aged Out No longer eligi ble based on patient's age to complete this topic MENINGOCOCCAL VACCINES (ACWY) Aged Out No longer eligible based on patient's age to complete this topic MENINGOCOCCAL VACCINES (B) Aged Out N o longer eligible based on patient's age to complete this topic PNEUMOCOCCAL VACCINES (0-49 years) Aged Out No longer eligible based on patient's age to complete this topic Medical Devices Not on file Insurance [employer] [facility] [employer] Care Teams It Consultant Relationship Specialty Start Date End Date Pcp, Unknown PCP - General 10/07/24 Additional Source Comments The information contained in this document represents components of the legal health record. It is not the complete legal health record.[facility]
== END 2025-04-03 13:50 | disposition home or self-care (01) ==
LOC: HO.HMCFM 13:13
PROVIDERS: PCP Internal Medicine; Visit Provider Internal Medicine
DX: Z00.00 Encounter for general adult medical examination without abnormal findings (principal); F41.9 Anxiety disorder, unspecified; R41.840 Attention and concentration deficit

== ENCOUNTER 2025-04-03 13:12 | Outpatient (REF) | payer OTHER, SELFPAY ==
[2025-04-03 18:20] LABS: MANUAL DIFF FLAG NO
[2025-04-03 18:35] LABS: Hematocrit 39.5 % (37.0-47.0); Hemoglobin 12.9 g/dl (12.0-16.0); Imm Gran Abs Auto 0.01 X10*3/uL (0.00-0.03); Imm Gran Pct Auto 0.2 % (0.0-0.4); Lymphocytes Absolute Auto 2.0 X10*3/uL (1.2-4.9); Mean Corpuscular HGB Conc 32.7 g/dl (31.0-35.0); Mean Corpuscular Hemoglobin 28.1 pg (27.0-33.0); Mean Corpuscular Volume 86.1 fL (80.0-98.0); NRBC Abs Auto 0.000 X10*3/uL (0.0-0.012); NRBC Pct Auto 0.0 /100WBC (0.0-0.2); Platelet Count 153 X10*3/uL (160-400); Red Blood Count 4.59 X10*6/uL (4.20-5.50); White Blood Count 4.7 X10*3/uL (4.8-10.8)
[2025-04-03 18:52] LABS: Alanine Aminotransferase 34 U/L (0-31); Albumin Level 5.1 g/dL (3.5-5.0); Alkaline Phosphatase 55 U/L (39-117); Anion Gap 11 (12-20); Aspartate Amino Transferase 24 U/L (5-31); Blood Urea Nitrogen 12 mg/dL (9-16); Calcium 9.5 mg/dL (8.4-10.2); Carbon Dioxide 29 mmol/L (22-29); Chloride 104 mmol/L (96-108); Cholesterol 142 mg/dL (<200); Estimated Glomerular Filt Rate > 60; HDL Cholesterol 61 mg/dL (>40); Potassium 4.2 mmol/L (3.3-5.1); Sodium 140 mmol/L (135-145); Total Protein 7.7 g/dL (6.5-8.0); Triglycerides 48 mg/dL (<150)
[2025-04-03 19:14] LABS: Folate 13.7 ng/mL (> or = 4.0); Vitamin B12 339 pg/mL (200-900)
--- OUTSIDE RECORDS SUMMARY | 2025-04-03 20:39 | XMS_ITS ---
Author Name [facility] Organization Unknown Results Test Name/Text Value Interpretation Date Range Source Specimen source Satisfactory for evaluation, endocervical/transfor mation zone component present 03/04/2025 [facility] Cytology Cvx/Vag Doc Thin Prep Reported 03/04/2025 [facility] LMP Start date 02/18/2025 03/04/2025 [facility] Cytology Cvx/Vag study Liquid Based Pap Test 03/04/2025 [facility] Fet 1p36 del prior risk from Pop risk Negative 03/04/2025 [facility] N HPV E6+E7 mRNA Cvx Ql YESICA+probe Negative 02/27/2025 - [facility] MG GLABRATA NEGATIVE Normal 12/13/2023 - [facility] TRICHOMONAS VAGINALIS NEGATIVE Normal 12/13/2023 - [facility] MG GROUP NEGATIVE Normal 12/13/2023 - [facility]G BACTERIAL VAGINOSIS NEGATIVE Normal 12/13/2023 - [facility] History of Medication Use Medication Directions Dispensed Refills Start Date End Date Stat us azelastine (ASTELIN) 137 mcg (0.1 %) nasal spray Administer 2 sprays into affected nostril(s) 2 times daily. 11/26/2024 active nystatin-triamcinolo ne (MYCOLOG II) cream Apply to affected area 2 times daily 12/11/2023 12/11/2024 aborted PNV no.95/ferrous fum/folic ac ( ORAL) Take by mouth. 03/25/2023 activ e simethicone (Gas-X) 80 MG chewable tablet Chew 1 tablet (80 mg total) by mouth 4 (four) times a day as needed for flatulence. 01/13/2023 01/14/2024 active acetaminophen (Tylenol) 325 MG tablet Take 2 tablets (650 mg total) by mouth every 6 (six) hours as needed for pain. 01/12/2023 01/13/2024 aborted docusate sodium (Colace) 100 MG capsule Take 1 capsule (100 mg total) by mouth daily as needed for constipation. 01/12/2023 01/13/2024 aborted ibuprofen 600 MG tablet Take 1 tablet (600 mg total) by mouth every 6 (six) hours as needed for pain. 01/12/2023 01/13/2024 active bisacodyl (DULCOLAX) [address] 1 suppository (10 mg total) rectally once as needed (prn post Day #2). 01/12/2023 12/22/2023 aborted oxyCODONE (ROXICODONE) 5 MG immediate release tablet Take 1 tablet (5 mg total) by mouth every 4 (four) hours as needed. 01/12/2023 12/22/2023 aborted senna (SENOKOT) 8.6 MG tablet Take 1 tablet by mouth every night at bedtime. 01/12/2023 12/22/2023 active Varicella Virus Vaccine Live (Varivax) 1350 PFU/0.5ML INJ injection PF 12/22/2023 active Vit-Fe Fumarate-FA ( VITAMINS PO) Take by mouth. active Problems Problem Status Onset Date Problem Type Date of Resolution Source Pap smear for cervical cancer screening active EncounterDiagnosisAct [place] History of section active 2023-01-10 ProblemAct [facility] active 2022-09-21 ProblemAct [facility] Admitted to labor and delivery active 2023-01-09 ProblemAct [facility] Immunizations Vaccine Date Source Lot Number Status Influenza Quadrivalent, 0.5m l, preservative free (Fluarix; FluLaval; Fluzone) ages 6mo and older (Afluria) 3yo and older 02/28/2023 [facility] [id number] completed Influenza Quadrivalent, 0.5m l, preservative free (Fluarix; FluLaval; Fluzone) ages 6mo and older (Afluria) 3yo and older 02/28/2023 [facility] [id number] completed MMR, measles mumps and rubel la Live (Priorix; M-M-R II) 12mo and older 01/13/2023 [facility] [id number] completed Tdap Tetanus diptheria acell ular pertussis (Boostrix; Adacel) 7yo and older 10/23/2022 [facility] [id number] completed Hepatitis B (Eskxgzf-I-Sgbuy , Recombivax HB-Adult) 19yo and older 08/24/2022 [facility] TB3KN complet ed Hepatitis B (Ifdhgsl-Q-Vamuq , Recombivax HB-Adult) 19yo and older 07/24/2022 [facility] TB3KN complet ed Tdap Tetanus diptheria acell ular pertussis (Boostrix; Adacel) 7yo and older 05/21/2022 [facility] completed Influenza Quadravalent, MDCK , 0.5ml, preservative free (Flucelvax) 6mo and older 05/08/2022 [facility] [id number] completed Varicella live (Varivax) 12mo and older 06/05/2017 [facility] [id number] completed Encounters Encounter Type Encounter Reason Primary Diagnosis Location Date Ambulatory Gynecologic Exam Encounter for gynecological examination (general) (routine) without abnormal findings [facility] [place] Ambulatory Encounter for routin e checking of intrauterine contraceptive device Encounter for routine checking of intrauterine contraceptive device [facility] 06/10/2024 Ambulatory iud removal Encounter for re moval of intrauterine contraceptive device [facility] 05/23/2024 Ambulatory Urinary Symptom Dysuria [facility] 05/05/2024 Ambulatory Encounter for gynecological examination (general) (routine) without abnormal findings Encounter for gynecological examination (general) (routine) without abnormal findings [facility] 02/21/2024 Inpatient 40 weeks gestation o f 40 weeks gestation of [facility] [place] 01/09/2023 Ambulatory BIN [id number] [phone] BIN 8 [phone] 23 [facility] 01/08/2023 Ambulatory 40 weeks gestation o f 40 weeks gestation of [facility] [place] 01/05/2023 Care Team Organization Name Specialty Phone Email Start Date End Da te [place] [employer]itter ([facility]) [facility] Primary Care 09/17/2024 [facility] NO PHYSICIAN Primary Care 05/23/2024 [facility] 03/31/2024 [facility] 03/28/2024 [facility] 3 01/05/2023 [facility] 3
[2025-04-04 07:52] LABS: Hemoglobin A1C 75.0125 umol/L
== END 2025-04-03 13:13 | disposition home or self-care (01) ==
LOC: HO.WFDLDS 13:12
PROVIDERS: PCP Internal Medicine; Visit Provider Internal Medicine
DX: Z00.00 Encounter for general adult medical examination without abnormal findings (principal); F41.9 Anxiety disorder, unspecified; R35.89 Other polyuria; R41.840 Attention and concentration deficit; Z13.220 Encounter for screening for lipoid disorders; Z13.228 Encounter for screening for other metabolic disorders; Z13.0 Encounter for screening for diseases of the blood and blood-forming organs and certain disorders involving the immune mechanism; Z91.09 Other allergy status, other than to drugs and biological substances; Z13.1 Encounter for screening for diabetes mellitus
CPT/HCPCS: 36415; 80053; 80061; 82607; 82746; 83036; 84443; 85025; 96127